=== PATIENT | male | born 1945 | race Caucasian/White ===

== ENCOUNTER 2017-02-19 14:23 | Day surgery (SDC) | payer MEDICARE, BC ==
--- NOTE | ~2017-02-19 | OP ---
Record Of Operation [facility] [address] [place]. [address] NAME: BENSON ROMERO : 41 STATUS : [facility]#: [id number] AGE: 71 ADM/REG DATE : 02/19/17 MR#: [id number] REPORT SERV DATE: 02/19/17 DICTATED BY: JEY FUNES DATE: 02/19/17 REPORT STATUS : Draft TRANSCRIBED BY: MODL DATE: 02/19/17 DATE OF PROCEDURE: 02/19/2017 PREOPERATIVE DIAGNOSIS: Left ureterovesical junction stone. POSTOPERATIVE DIAGNOSIS: Left ureterovesical junction stone. PROCEDURES PERFORMED: Cystoscopy, left retrograde pyelogram, left ureteroscopy with stone extraction and stent placement. SURGEON: Jey Funes M.D. ANESTHESIA: General. ESTIMATED BLOOD LOSS: About 20 mL. INDICATIONS: This is a 71-year-old white male with symptomatic BPH and history of abdominal and flank pain. He has been found on CT scan to have a distal left ureteral stone, measuring about 5 mm in size. We have elected to proceed with endoscopic extraction. Risks of infection, bleeding, failure, and need for further surgery have been discussed. DESCRIPTION OF PROCEDURE: The patient was taken to the operating room and underwent a general anesthetic. He was placed in the lithotomy position on the table, and his external genitalia were sterilely prepped and draped. A 22-Romanian cystoscope sheath with 30-degree lens was inserted under direct vision per urethra with the aid of the video monitor. The anterior urethra was normal. The prostate measured about 2.5 cm in length and had moderate lateral lobe occlusion. There was an enlarged moderately intrusive median lobe component. The prostate was friable and bled when touched with the scope. The bladder itself was moderately trabeculated. There were no mass lesions or stones within the bladder. Single orifices were seen bilaterally. A left retrograde pyelogram was obtained showing mild hydroureteronephrosis columning down to an area just above the left UVJ where there was a faint filling defect. A 0.038 guidewire was placed up into the collecting system of the kidney under fluoroscopic guidance and the distal ureter was dilated to 11-Romanian using a 9.5/11-Romanian ureteral access sheath. Following successful distal ureteral dilation, the rigid ureteroscope was advanced up per urethra into the bladder again with the aid of the video monitor and was advanced up into the left orifice, the stone was almost immediately encountered. The stone was grasped with the basket and removed intact. The ureter was then reinspected with the scope actually being advanced all the way up to a level just below the UPJ area. The entire ureter was smoothly dilated right down to the UVJ. No other stones were noted. The ureteroscope was withdrawn from the bladder. The cystoscope was replaced over the guidewire and a 6-Romanian x 28 cm Contour stent was advanced over the guidewire such that the proximal end of the stent was observed to coil in the collecting system of the kidney under fluoroscopic guidance and the distal end of the stent was visually observed to coil in the bladder following removal of the guidewire. The stent was left connected to a string dangle, which was taped to the patient's penis. The endoscopic apparatus was removed and an 18-Romanian Bautista catheter was inserted and left to gravity drainage. The stent had Record Of Operation [address] [address] NAME: BENSON ROMERO JEY : 41 STATUS : [facility] PAT#: [id number] AGE: 71 ADM/REG DATE : 02/19/17 MR#: [id number] REPORT SERV DATE: 02/19/17 DICTATED BY: JEY FUNES DATE: 02/19/17 REPORT STATUS : Draft TRANSCRIBED BY: SYLWIA DATE: 02/19/17 been left connected to a string dangle, which was taped to the patient's penis. The patient was then taken to recovery in stable condition. DS/SYLWIA Jey Funes M.D. / [id number] CC: Ragini Krishna II, M.D.
[~2017-02-19 14:23] MED LIST: ACET500CAP PO; ALBUTEROL0.083 % INH; ASAB PO; ATROVENTUD INH; CYMBALTA60 PO; EFFEX75 PO; ENDOCET1 TAB PO; FISH OIL PO; FISH OIL1200 MG PO; FLOMAX4 PO; HYDROCHLOROT12.5 MG PO; HYT2 PO; KLONO1 PO; LEVOTHYROXIN175 MCG PO; LOFIB160 PO; LOP25 PO; METHOC500B PO; NEUR100 PO; NORCO1 TA1 PO; NORV25 PO; PLAVIX PO; POTASSIUM PO; PRIN10 PO; PRIN2.5 PO; PROSCAR5 PO; REQUIP1 PO; SIN25 PO; VITAMIN B-122500 MCG SL; VITC500 PO; XALAT OPH; ZOCOR40 PO
[2017-02-19 15:43] LABS: BASOPHILS 0.3 %; BASOPHILS ABSOLUTE 0.03 10/3/uL (0.0-0.16); EOSINOPHILS 2.3 %; IMMATURE GRANULOCYTES 0.7 %; IMMATURE GRANULOCYTES ABSOLUTE 0.06 10/3/uL (0.0-0.11); LYMPHOCYTES 16.8 %; LYMPHOCYTES ABSOLUTE 1.46 10/3/uL (0.67-4.30); MEAN CORPUS HGB CONC 35.2 g/dL (32.0-36.0); MEAN CORPUSCULAR HEMOGLOB 30.3 pg (26.0-34.0); MEAN PLATELET VOLUME 9.8 fL (9.2-13.0); MONOCYTES 9.5 %; MONOCYTES ABSOLUTE 0.82 10/3/uL (0.21-1.20); NEUTROPHILS 70.4 %; RBC DISTRIBUTION WIDTH 13.5 % (12.0-16.0); RED CELL COUNT 4.46 10/6/uL (4.7-6.1)
[2017-02-19 15:44] LABS: HEMATOCRIT 38.4 % (40.0-51.0); HEMOGLOBIN 13.5 g/dL (13.6-17.8); MANUAL DIFF NO %; MEAN CORPUSCULAR VOLUME 86.1 fL (80-100); PLATELET COUNT 283 10/3/uL (150-400); WHITE BLOOD CELLS 8.7 10/3/uL (4.5-10.5)
[2017-02-19 15:52] LABS: INTERNATIONAL NORMAL RATI 1.2 UNITS (-); PARTIAL THROMBO TIME 36.5 SEC (22.5-37.2); PROTIME (NOT ORD) 15.2 SEC (12.0-14.5)
[2017-02-19 15:55] LABS: CHLORIDE, SERUM 105 MMOL/L (96-112); CO2 (CARBON DIOXIDE) 29 MMOL/L (24-34); CREATININE 1.71 MG/DL (0.70-1.30); GFR AFRICAN AMERICAN 45 ML/MIN (>=60); GFR NON AFRICAN AMERICAN 39 ML/MIN (>=60); GLUCOSE, SERUM 117 MG/DL (60-99); POTASSIUM, SERUM 4.7 MMOL/L (3.5-5.3); SODIUM, SERUM 139 MMOL/L (135-148)
[2017-02-19 15:57] LABS: BUN (BLOOD UREA NITROGEN) 27 MG/DL (6-23); CALCIUM, SERUM 9.7 MG/DL (8.5-10.4)
[2017-02-25 01:24] LABS: STONE COMPOSITION TWO DNR (())
== END 2017-02-19 20:34 | disposition home or self-care (01) ==
LOC: SDC 14:23
PROVIDERS: Urology
PROC: 0T778DZ Dilation of Left Ureter with Intraluminal Device, Via Natural or Artificial Opening Endoscopic (ICD-10-PCS; 2017-02-19)
PROC: BT1FYZZ Fluoroscopy of Left Kidney, Ureter and Bladder using Other Contrast (ICD-10-PCS; 2017-02-19)
PROC: 0TC78ZZ Extirpation of Matter from Left Ureter, Via Natural or Artificial Opening Endoscopic (ICD-10-PCS; principal; 2017-02-19 15:00)
DX: N13.2 Hydronephrosis with renal and ureteral calculous obstruction (principal); H40.9 Unspecified glaucoma; J44.9 Chronic obstructive pulmonary disease, unspecified; F32.9 Major depressive disorder, single episode, unspecified; G20 Parkinson's disease; G47.33 Obstructive sleep apnea (adult) (pediatric); Z79.899 Other long term (current) drug therapy; Z79.891 Long term (current) use of opiate analgesic; Z90.89 Acquired absence of other organs; Z90.49 Acquired absence of other specified parts of digestive tract; Z98.890 Other specified postprocedural states
CPT/HCPCS: 71010; 74420; 80048; 82365; 85025; 85610; 85730; 93005; A9270-GY; C1758; C1894; C2617; J2250; J2405; J2710; J3010; Q9967